=== PATIENT | female | born 1990 | race Caucasian/White ===

== ENCOUNTER 2019-02-08 22:19 | Emergency (ER) | payer OTHER ==
[~2019-02-08] VITALS: Ht 162.6 cm; Wt 66.1 kg
[~2019-02-08 22:19] MED LIST: ACYC-57 PO; IBUP-1222 PO; OXYC-302 PO; PNV11TAB
[2019-02-08 22:22] VITALS: BP 148/73
== END 2019-02-09 00:22 | disposition home or self-care (01) ==
LOC: ED 22:45
DX: M25.551 Pain in right hip (principal); M79.651 Pain in right thigh; M79.661 Pain in right lower leg; K59.00 Constipation, unspecified
CPT/HCPCS: 99284